=== PATIENT | male | born 1990 | race Caucasian/White ===

== ENCOUNTER 2019-11-19 02:20 | Emergency (ER) | payer SELFPAY ==
[2019-11-19 02:40] VITALS: BP 148/91
--- NOTE | 2019-11-19 02:53 | ED Physician Documentation ---
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 No LOC; answers questions appropriately; not completely cooperative; he is refusing stitches; refusing tetanus update. Patient finally agrees to stitches and tetanus vaccine; he is cooperative with staff. Onset: hours Timing: still present Severity: mild Modifying Factors: fall - ROS CONST: no problems EYES/ENT: none CVS/RESP: none GI/: none MS/SKIN/LYMPH: none NEURO/PSYCH: denies: headache - PAST HX Past History: none Other History: none Surgeries/Procedures: none Immunizations: UTD Allergies/Adverse Reactions: Allergies Allergy/AdvReac Type Severity Reaction Status Date / Time Penicillins Allergy Verified 11/19/19 02:46 Home Medications: Ambulatory Orders Medication Instructions Recorded NK 11/19/19 - SOCIAL HX Smoking History: greater than 1 pack/day Alcohol Use: occasionally Drug Use: marijuana - FAMILY HX Family History: No - VITAL SIGNS Vital Signs: Vital Signs Temp Pulse Resp BP Pulse Ox 90 18 148/91 97 11/19/19 02:33 11/19/19 02:33 11/19/19 02:33 11/19/19 02:33 - REVIEWED ASSESSMENTS Nursing Assessment Reviewed: Yes Vitals Reviewed: Yes Procedures Wound Location: face Wound Length: 2 Wound's Depth, Shape: stellate Wound Explored: no foreign body removed Irrigated w/ Saline (ccs): 100 Betadine Prep?: Yes Anesthesia: Lidocaine w/ Epi Volume of Anesthetic: 3 ml Wound Repaired With: sutures Suture Size/Type: 5:0 Number of Sutures: 4 Layer Closure?: No Sterile Dressing Applied?: Yes Progress: Patient was cooperative and tolerated well ED Results Lab/Radiology - Orders Orders: ED Orders Category Date Time Status Apply/change dressing NOW Care 11/19/19 02:50 Ordered Cleanse with NS and Chlorhexid 1T Care 11/19/19 02:50 Ordered Diph,Pertuss(Acell),Tet Vac/Pf [Adacel] Med 11/19/19 02:43 Discontinued 0.5 ml IM .STK-MED ONE Lidocaine 1%/Epinephrine [Xylocaine 1%-EPI 1:100,000] Med 11/19/19 02:50 Once 1 ml IJ NOW ONE Lidocaine HCl/Epinephrine/Pf [Xylocaine 2%-Epi 1:200, Med 11/19/19 02:32 Discontinued 000] 20 ml IJ .STK-MED ONE General Adult Physical Exam - PHYSICAL EXAM GENERAL APPEARANCE: no distress EENT: eye inspection normal, ENT inspection normal, pharynx normal, no signs of dehydration, FRANSISCO, TM's nml NECK: normal inspection, supple RESPIRATORY: no resp distress, chest non-tender, breath sounds normal CVS: reg rate & rhythm, heart sounds normal, equal pulses ABDOMEN: soft, normal bowel sounds SKIN: warm/dry, normal color, other (laceration to the forehead) EXTREMITIES: normal range of motion NEURO: oriented X3, CN's nml as tested, motor nml, sensation nml Discharge Clincal Impression: Facial laceration Additional Instructions: Patient is alert and oriented; answers questions. Follow up with PCP in 7-10 days to have sutures removed From medical standpoint patient is fit for confinement Condition: Good Disposition: 01 HOME, SELF-CARE Decision to Admit: NO Decision Time: 02:56 (DC'd to [facility])
[2019-11-19] MEDS: LIDOCAINE HCL 2%/EPI. (1:200,000) PF 20ML VIAL IJ ONE (02:54)
[2019-11-19] MEDS: LIDOCAINE HCL 1%/EPI. (1:100,000) MDV 20ML VIAL IJ ONE (02:54)
[2019-11-19] MEDS: DIPH,PERTUSS(ACELL),TET VAC/PF 0.5 ML DISP.SYRIN IM ONE (02:55)
== END 2019-11-19 02:53 | disposition home or self-care (01) ==
LOC: ED 02:20
DX: S01.81XA Laceration without foreign body of other part of head, initial encounter (principal); W19.XXXA Unspecified fall, initial encounter
CPT/HCPCS: 12011; 90471; 90715; 99282; 99284